=== PATIENT | female | born 1990 | race Two or more races ===

== ENCOUNTER 2023-05-16 21:50 | Emergency (ER) | payer MEDICAID, OTHER ==
[~2023-05-16] VITALS: Ht 167.6 cm; Wt 53.0 kg
[2023-05-16] MEDS ORDERED: KETOROLAC TROMETH 60MG/2ML VIAL IM ONE (22:30)
[2023-05-16 22:58] LABS: Urine Bacteria MANY /hpf (None Seen); Urine Blood TRACE /uL (Negative); Urine Mucus FEW (None Seen); Urine Specific Gravity 1.025 (1.001-1.035); Urine WBC 22 /hpf (0 - 5); Urine WBC Clumps PRESENT /hpf (None Seen)
[2023-05-16 23:07] LABS: Eosinophils # (auto) 0 10 ^3/uL (0-0.8); Hemoglobin 13.2 g/dL (12.2-16.2); Mean Corpuscular Volume 101.8 fL (80.0-100.0); Monocytes # (auto) 1.4 10 ^3/uL (0-1.3); Monocytes % (auto) 7.1 % (0.0-12.0); Red Cell Distribution Width 12.9 % (11.8-14.3)
[2023-05-16 23:08] LABS: Basophils # (auto) 0 10 ^3/uL (0-0.2); Basophils % (auto) 0.2 % (0.0-2.0); Hematocrit 40.4 % (36.0-46.0); Lymphocytes # (auto) 1.7 10 ^3/uL (0.4-5.4); Lymphocytes % (auto) 8.9 % (10.0-50.0); Mean Corpuscular Hemoglobin 33.3 pg (28.0-32.0); Mean Corpuscular Hgb Conc. 32.8 g/dL (32.0-36.0); Neutrophils # (auto) 16.4 10 ^3/uL (1.6-8.6); Neutrophils % (auto) 83.8 % (37.0-80.0); Red Blood Cells 3.97 10^6/uL (4.0-5.20); White Blood Cell 19.5 10^3/uL (4.4-10.8)
[2023-05-16 23:23] LABS: Albumin 3.9 g/dL (3.4-5.0); Calcium 8.9 mg/dL (8.5-10.1); Potassium 3.8 mmol/L (3.5-5.1)
[2023-05-16 23:27] LABS: BUN/Creatinine Ratio 10.2 (10.0-20.0); Bilirubin, Total 0.8 mg/dL (0.2-1.0); Total Protein 8.1 g/dL (6.4-8.2)
[2023-05-17] MEDS ORDERED: MORPHINE SULFATE 4 MG/ML SYR/VIAL IV ONE
[2023-05-17] MEDS ORDERED: SODIUM CHLORIDE 0.9% 2,000 ML IV ONE
[2023-05-17] MEDS ORDERED: CEFTRIAXONE SODIUM 2 GM in D5W 5% 100 ML IV ONE ×2
[2023-05-17] MEDS ORDERED: ONDANSETRON HCL 4 MG/2 ML VIAL IV ONE
[2023-05-17] MEDS ORDERED: ZOFR4T PO (00:04)
[2023-05-17] MEDS ORDERED: IBU600T PO (00:04)
[2023-05-17] MEDS ORDERED: CIPR500T4 PO ×2 (00:04)
[2023-05-17] MEDS ORDERED: TAMSULOSIN HYDROCHLORIDE 0.4 MG CAP PO ONE (00:15)
[2023-05-17] MEDS ORDERED: AUG875T PO (01:58)
[2023-05-17 02:03] VITALS: BP 119/77; PULSE 102; RESP 18; TEMP 98.7; O2SAT 99
== END 2023-05-17 02:05 | disposition home or self-care (01) ==
LOC: ER 21:50
DX: N39.0 Urinary tract infection, site not specified (principal); N20.0 Calculus of kidney; R10.9 Unspecified abdominal pain; Z87.442 Personal history of urinary calculi; Z79.1 Long term (current) use of non-steroidal anti-inflammatories (NSAID); Z79.899 Other long term (current) drug therapy
CPT/HCPCS: 36415; 74176; 80053; 81001; 83690; 85025; 87086; 87088; 87186; 96372; 99285; J1885